=== PATIENT | male | born 1995 | race Hispanic/Latino ===

== ENCOUNTER → 2021-04-18 | Outpatient (CLI) | payer BC ==
[~2021-04-18] MED LIST: PROHANCE 279.3MG/ML 15ML VIAL As Ordered ONE
--- NOTE | 2021-04-18 20:14 | REPVR ---
PROCEDURE INFORMATION: Exam: MR Head Without and With Contrast, Sella Exam date and time: 04/18/2021 5:30 PM Age: 25 years old Clinical indication: Screening exam; Additional info: Testicular hypofunction TECHNIQUE: Imaging protocol: MR of the head without and with intravenous contrast. Exam focused on the sella. Contrast material: PROHANCE; Contrast volume: 10 ml; Contrast route: INTRAVENOUS (IV); COMPARISON: CT Neck with contrast 03/31/2016 2:59 PM FINDINGS: Brain: Unremarkable. No acute infarct. No significant white matter disease. No edema. Cerebral ventricles: Unremarkable. No Ventriculomegaly. No abnormal enhancement. Pituitary gland and sella: Unremarkable. Pituitary gland is normal. Normal enhancement. Bones/joints: Unremarkable. IMPRESSION: Unremarkable sella. Electronically signed by: Sam Valderrama On 04/18/2021 20:14:15 PM
== END ==
LOC: M RAD 15:43
PROVIDERS: ATTEND Internal Medicine Endocrinology, Diabetes & Metabolism
DX: E29.1 Testicular hypofunction (principal)
CPT/HCPCS: 70553; A9576

== ENCOUNTER → 2021-07-20 | Outpatient (CLI) | payer BC ==
[2021-07-23 12:13] LABS: PROLACTIN 29.9 NG/ML (2.1-17.7)
== END ==
LOC: M WUC 15:05
PROVIDERS: ATTEND Internal Medicine Endocrinology, Diabetes & Metabolism
DX: E29.1 Testicular hypofunction (principal)

== ENCOUNTER → 2021-11-02 | Outpatient (CLI) | payer SELFPAY ==
[2021-11-02 10:17] LABS: PROLACTIN 26.8 NG/ML (2.1-17.7)
== END ==
LOC: M WUC 08:39
PROVIDERS: ATTEND Internal Medicine Endocrinology, Diabetes & Metabolism
DX: E29.1 Testicular hypofunction (principal)